=== PATIENT | female | born 1980 | race Caucasian/White ===

== ENCOUNTER 2019-07-07 16:16 | Inpatient (IN) | payer OTHER ==
[2019-07-20 11:55] VITALS: BMI 38.1
[2019-07-21] MEDS ORDERED: Heparin 5,000 UNITS/ML VIAL ONE (06:18)
[2019-07-21] MEDS ORDERED: Bupivacaine/Epinephrine 0.25% 30 ML VIAL ONE (07:02)
[2019-07-21] MEDS ORDERED: HYDROmorphone 0.5 MG/0.5 ML SYRINGE ONE (07:06)
[2019-07-21] MEDS ORDERED: Promethazine HCl 25 MG/ML VIAL ONE (07:06)
[2019-07-21] MEDS ORDERED: Fentanyl 100 MCG/2 ML VIAL ONE (07:06)
[2019-07-21] MEDS ORDERED: Midazolam HCl 2 mg/2 ml Vial ONE ×2 (07:06→07:13)
--- NOTE | 2019-07-21 07:37 | HP ---
CHIEF COMPLAINT: Morbid obesity. HISTORY OF PRESENT ILLNESS: The patient is a 38-year-old female who has been overweight for many years. She has attempted multiple weight loss programs without success. She has severe gastroesophageal reflux and she is here for laparoscopic Ann-en-Y gastric bypass. PAST MEDICAL HISTORY: Bipolar, depression, hypothyroidism, anxiety, depression, diabetes. PAST SURGICAL HISTORY: She has had finger surgery and a tonsillectomy. MEDICATIONS: 1. Levemir. 2. Metformin. 3. Wellbutrin. 4. Celexa. 5. Chantix. 6. Zolpidem. 7. Citalopram. 8. Divalproex ER. 9. ProAir. 10. Bupropion. 11. Diflucan. ALLERGIES: SHE HAS NO KNOWN DRUG ALLERGIES. FAMILY HISTORY: Father is from diabetes, hypertension, heart disease. Mother from diabetes, hypertension, heart disease. SOCIAL HISTORY: . She does smoke or she just quit smoking with Chantix. She drinks alcohol occasionally. PHYSICAL EXAMINATION: VITAL SIGNS: Height , weight 255, body mass index 42.43. GENERAL: Well-developed, well-nourished female, in no apparent distress. HEENT: Good hair growth. No alopecia. Pupils equal round reactive. Extraocular motor intact. Pharynx clear. Good dentition. LUNGS: Clear. NECK: Supple no thyroid masses. No carotid bruits. LUNG: Clear. HEART: Regular rate and rhythm. BREAST: There are no palpable breast masses. No lymphadenopathy. ABDOMEN: Soft, nondistended, nontender. No hernias. BACK: Nontender. EXTREMITIES: Good pulses. No pedal edema. ASSESSMENT: Morbid obesity with comorbidities. PLAN: Laparoscopic Ann-en-Y gastric bypass. CONSENT: I have discussed planned procedure as well as risk of bleeding, infection, injury to esophagus, spleen, loops of bowel, need to open, leakage from staple line. She understands and gives informed consent. Job ID: [id number]
[2019-07-21] MEDS ORDERED: Dextrose 5% in Water 1,000 ML IV PRN (09:43)
[2019-07-21] MEDS ORDERED: Promethazine HCl 25 MG/ML VIAL IM PRN ×3 (09:43→10:03)
[2019-07-21] MEDS ORDERED: Dextrose 50% Abboject 50 ML SYRINGE SLOW IVP PRN (09:43)
[2019-07-21] MEDS ORDERED: Hydrocodone-Acetamin 15 ML UDCUP PO PRN (09:43)
[2019-07-21] MEDS ORDERED: hydrALAZINE 20 MG/ML VIAL SLOW IVP PRN (09:43)
[2019-07-21] MEDS ORDERED: diphenhydrAMINE 50 MG/ML VIAL IVP PRN ×2 (09:43→10:03)
[2019-07-21] MEDS ORDERED: Insulin Regular 300 UNITS/3 ML VIAL SC PRN (09:43)
[2019-07-21] MEDS ORDERED: Ondansetron PF 4 MG/2 ML Vial IVP PRN ×2 (09:43→10:03)
[2019-07-21] MEDS ORDERED: PACU-Morphine 4MG/ML VIAL SLOW IVP PRN (09:59)
[2019-07-21] MEDS ORDERED: Ondansetron HCl/PF 4 MG/2 ML Vial IVP PRN (09:59)
[2019-07-21] MEDS ORDERED: Promethazine HCl 25 MG/ML VIAL SLOW IVP PRN (09:59)
[2019-07-21] MEDS ORDERED: HYDROmorphone 2 MG/ML VIAL SLOW IVP PRN (09:59)
[2019-07-21] MEDS ORDERED: Naloxone HCl 0.4 mg/ml Vial IV PRN (10:03)
[2019-07-21] MEDS ORDERED: Zolpidem Tartrate 5 MG TAB PO PRN (10:03)
[2019-07-21] MEDS ORDERED: diphenhydrAMINE 50 MG/ML VIAL IM PRN (10:03)
[2019-07-21] MEDS ORDERED: fentaNYL Citrate/PF 2,000 MCG in Sodium Chloride 0.9% 60 ML IV PRN (10:03)
[2019-07-21] MEDS ORDERED: diphenhydrAMINE 25 MG CAP PO PRN (10:03)
[2019-07-21] MEDS ORDERED: Communication Order-Pharmacy FS SCH (10:15)
--- NOTE | 2019-07-21 11:35 | OP ---
DATE OF PROCEDURE: 07/21/2019 PREOPERATIVE DIAGNOSIS: Morbid obesity with gastroesophageal reflux. PROCEDURE PERFORMED: Laparoscopic Ann-en-Y gastric bypass with esophagogastroscopy. INDICATIONS: This is 38-year-old female, morbidly obese, also has severe reflux esophagitis. FINDINGS: 100 cm Ann limb, 50 cm biliopancreatic limb. DESCRIPTION OF PROCEDURE: After informed consent was obtained, the patient was taken to the operating room and given general endotracheal anesthesia. She was placed in the supine position. Abdomen was prepped and draped in the usual fashion. Local anesthesia infiltrated subcutaneously and deep and a 12-mm incision was performed approximately 8 inches above the xiphoid slightly to the left. Veress needle inserted. Drop test performed. Pneumoperitoneum was created to a volume of 2 L of carbon dioxide. Utilizing a bladeless 12-mm trocar and 0-degree laparoscope, direct visual entry in the abdominal cavity was performed. Pneumoperitoneum was then created to a pressure of 15 mmHg. Under direct vision, two 12-mm ports were placed on the right lateral abdomen and one on the left. The omentum was grasped and advanced superiorly. The ligament of Treitz was found, 50 cm measured off, and the jejunum was divided utilizing the linear 60-mm white-load stapler. Then, distally, it was measured off another 100 cm and a [id number]-mo-dhbv functional end-to-end anastomosis was performed. The bowel was approximated and enterotomies were performed antimesenteric. The linear 60-mm white-load stapler was inserted, one limb in each limb of bowel closed and fired. The common enterotomy was closed with a running 2-0 V-Loc PDS. Then, the potential hernia space of Rahman was closed with a 2-0 silk suture, pursestring. The patient was then placed in steep reverse Trendelenburg position. Kip liver retractor inserted. Left lobe of liver retracted superiorly. The lesser curve was opened using blunt and sharp dissection to enter the lesser sac. A linear 60-mm blue-load stapler was inserted to make a transverse cut across the stomach trans. Then, using a series of 60-mm blue loads, the pouch was created by then going superiorly to the angle of His. Hemostasis was assured. Then, the omentum was split utilizing the LigaSure. The Ann limb was found. A gastrotomy was created with electrocautery and further dilated with a [place] dissector. This was also performed approximately 10 cm from the staple line on the Ann limb. The linear 60-mm blue load stapler was inserted, one limb in the jejunum, which was then advanced to the stomach, which was then inserted in the stomach. A perforation occurred on the jejunal area with the end of the stapler. The stapler was fired and this perforation on the left side was closed with interrupted [id number]-etirsv of 2-0 silk suture, tied intracorporeally. The gastrojejunostomy and common enterotomy were closed with a running transversely with a running 2-0 V-Loc PDS. Intraoperative endoscopy was then performed utilizing the video endoscope. This was inserted under direct vision and advanced into the gastric pouch. This was insufflated with air. The Ann limb was occluded with a laparoscopic Dequan to allow pressurized air to be delivered to the anastomosis. The scope advanced easily into the Ann limb. There was no evidence of air leak or bleeding. The stomach and small bowel decompressed. The scope removed. The ports were serially removed. Hemostasis assured. The skin closed with interrupted 4-0 Rapide. Dermabond applied. The patient tolerated the procedure well and transferred to Recovery in good condition. Job ID: [id number]
[2019-07-21] MEDS: Ketorolac Tromethamine 30 MG/ML VIAL IVP SCH ×3 (12:51→22:56)
[2019-07-21] MEDS: CEFAZOLIN 2 GM in Premix Bag 1 BAG IVPB SCH ×2 (13:59→22:54)
[2019-07-21] MEDS: 1/2 NS w/KCL 20 mEq 1,000 ML IV SCH ×3 (14:03→22:52)
[2019-07-22 05:10] LABS: #Basophils 0.1 thou/uL (0.0-0.2); #Lymphocytes 3.7 thou/uL (1.20-3.40); #Monocytes 1.7 thou/uL (0.11-0.59); #Neutrophils 9.6 thou/uL (1.40-6.50); %Basophils 0.5 % (0.0-1.0); %Eosinophils 0.2 % (0.0-10.0); %Lymphocytes 24.4 % (21.0-51.0); %Monocytes 11.3 % (0.0-10.0); %Neutrophils 63.7 % (42.0-75.0); Hemoglobin 12.3 g/dL (12.0-16.0); Mean Corpuscular Hemoglobin 34.5 pg (27.0-31.0); Mean Platelet Volume 8.5 fL (7.4-10.4); Platelet Count 174 thou/uL (130-400); RBC Distribution Width 12.5 % (11.5-14.5); Red Blood Cell (RBC) Count 3.57 mill/uL (4.20-5.40); White Blood Cell (WBC) Count 15.1 thou/uL (4.8-10.8)
[2019-07-22] MEDS: Ketorolac Tromethamine 30 MG/ML VIAL IVP SCH ×2 (05:23→11:09)
[2019-07-22 05:27] LABS: Anion Gap 13 mmol/L (10-20); BUN (Urea Nitrogen) 9 mg/dL (7.0-18.7); Calc. Creatinine Clearance 166 mL/min (70-130); Calcium 7.8 mg/dL (7.8-10.44); Carbon Dioxide 22 mmol/L (22-29); Chloride 104 mmol/L (98-107); Estimated GFR-MDRD 85; Glucose 97 mg/dL (70-105); Potassium 4.4 mmol/L (3.5-5.1); Sodium 135 mmol/L (136-145)
[2019-07-22] MEDS: 1/2 NS w/KCL 20 mEq 1,000 ML IV SCH (06:38)
[2019-07-22 07:58] VITALS: BP 120/74; TEMP 97.7
[2019-07-22] MEDS ORDERED: Enoxaparin Sodium 40 MG/0.4 ML SYRINGE SC SCH (09:00)
[2019-07-22] MEDS ORDERED: Pantoprazole 40 MG VIAL IVP SCH (09:00)
--- NOTE | 2019-07-22 11:03 | RAD ---
LIMITED UPPER GI: Date: 07/22/19 INDICATIN: Postop gastric bypass evaluation. FINDINGS: The patient was given Gastrografin orally under fluoroscopy. Contrast flowed through the EG junction without difficulty. Small gastric pouch opacified. Contrast flowed into the jejunum through the gastr ic jejunostomy without difficulty. No extravasation. IMPRESSION: Unremarkable post gastric bypass exam. POS: IZABELLA
[2019-07-22] MEDS ORDERED: GASTROGRAFIN 30 ML BOT ONE (12:06)
--- NOTE | 2019-07-23 03:55 | DIS ---
DATE OF ADMISSION: 07/21/2019 DATE OF DISCHARGE: 07/22/2019 DISCHARGE DIAGNOSES: Morbid obesity, gastroesophageal reflux. PROCEDURES DURING ADMISSION: Laparoscopic Ann-en-Y gastric bypass, intraoperative esophagogastroscopy, and postoperative Gastrografin swallow. HOSPITAL COURSE: The patient was admitted and taken to the operating room, where she underwent Ann-en-Y gastric bypass and intraoperative esophagogastroscopy. Postoperatively, she has done well. Minimal pain. Her swallow study was fine. She was started on liquids. She is tolerating them well. She is discharged home on hydrocodone and Zofran. She will follow up with me in 2 weeks. Job ID: [id number]
== END 2019-07-22 11:57 | disposition home or self-care (01) | DRG 621 ==
LOC: SURG A 07-21 05:49
PROVIDERS: ADMIT Surgery; ATTEND Surgery
PROC: 0D164ZA Bypass Stomach to Jejunum, Percutaneous Endoscopic Approach (ICD-10-PCS; principal; 2019-07-21)
PROC: 0DJ08ZZ Inspection of Upper Intestinal Tract, Via Natural or Artificial Opening Endoscopic (ICD-10-PCS; 2019-07-21)
DX: E66.01 Morbid (severe) obesity due to excess calories (principal); K21.9 Gastro-esophageal reflux disease without esophagitis; Z79.84 Long term (current) use of oral hypoglycemic drugs; Z79.899 Other long term (current) drug therapy; Z68.41 Body mass index [BMI] 40.0-44.9, adult
CPT/HCPCS: 36415; 36416; 74241; 80048; 85025; 94760; C9113; J0690; J1170; J1644; J1650; J1885; J2250; J2550; J3010; J3480; J3490

== ENCOUNTER 2020-02-14 15:32 | Inpatient (IN) | payer OTHER ==
[~2020-02-14 15:32] MED LIST: Dexamethasone 20 MG/5 ML VIAL ONE; Glycopyrrolate 0.2 MG/ML 5 ML SYRINGE ONE; Ketorolac Tromethamine 30 MG/ML VIAL ONE; Lidocaine 1% PF 5 ML VIAL ONE; Metoclopramide HCl 10 MG/2 ML VIAL ONE; Ondansetron PF 4 MG/2 ML Vial ONE; PROPOFOL 200 MG/20 ML VIAL ONE; Rocuronium Bromide 10 MG/ML (10ML VIAL) ONE; Succinylcholine Chloride 20 MG/ML 10 ml SYRINGE FS ONE
[2020-02-14] MEDS ORDERED: Betamet Acet/Betamet Na Ph 30 MG/5 ML VIAL ONE (16:08)
[2020-02-14] MEDS ORDERED: Heparin 10,000 UNITS/1 ML VIAL ONE (16:08)
[2020-02-14] MEDS ORDERED: Bupivacaine PF 0.5% 30 ML VIAL ONE (16:08)
[2020-02-14] MEDS ORDERED: Hetastarch 6% 500 ML 0 ML ONE (16:09)
[2020-02-14] MEDS ORDERED: Bacitracin Zinc Ointment 30 gm TUBE ONE ×2 (16:09→16:35)
[2020-02-14] MEDS ORDERED: Lidocaine 2% PF 5 ML VIAL ONE (16:09)
[2020-02-14] MEDS ORDERED: Vancomycin 1 GM/200 ML BAG ONE (16:21)
--- NOTE | 2020-02-14 16:27 | RAD ---
LEFT THUMB RADIOGRAPHS THREE VIEWS: 02/14/20 PROVIDED CLINICAL HISTORY: Fracture follow-up. FINDINGS: Comparison is made with the examination dated 02/13/20. Obliquely oriented, displaced fracture of the thumb distal phalanx is redemonstrated. Overlying bandaging material is noted. Communication with the skin surface in the region of the nailbed is suspected. Joint spaces appear preserved. Alignment mahsa ears otherwise anatomic. IMPRESSION: Displaced, likely open fracture of the thumb distal phalanx. POS: THOM
[2020-02-14] MEDS ORDERED: Ondansetron PF 4 MG/2 ML Vial IV PRN (16:41)
[2020-02-14] MEDS ORDERED: Bisacodyl 10 MG SUPP PR PRN (16:41)
[2020-02-14] MEDS ORDERED: Acetaminophen 325 MG TAB PO PRN (16:41)
[2020-02-14] MEDS ORDERED: traMADol HCl 50 MG TAB PO PRN (16:41)
[2020-02-14] MEDS ORDERED: Fentanyl 100 MCG/2 ML VIAL SLOW IVP PRN (16:41)
[2020-02-14] MEDS ORDERED: Morphine 2 MG/ML SYRINGE SLOW IVP PRN (16:41)
[2020-02-14] MEDS ORDERED: HYDROcodone/Acetaminophen 5/325 mg Tablet PO PRN (16:41)
[2020-02-14] MEDS ORDERED: Communication Order-Pharmacy FS SCH (16:45)
[2020-02-14] MEDS ORDERED: Meperidine HCl/PF 25 MG/ML VIAL IM PRN (16:47)
[2020-02-14] MEDS ORDERED: Sodium Chloride 0.9% 30 ML ONE (16:47)
[2020-02-14] MEDS ORDERED: TETANUS AND DIPHTHERIA TOX/PF 0.5 ML DISP.SYRIN IM SCH (17:00)
[2020-02-14] MEDS ORDERED: Fentanyl 100 MCG/2 ML VIAL ONE (17:02)
[2020-02-14] MEDS ORDERED: Midazolam HCl 2 mg/2 ml Vial ONE (17:22)
[2020-02-14] MEDS ORDERED: HYDROmorphone 2 MG/ML VIAL SLOW IVP PRN (18:43)
[2020-02-14] MEDS ORDERED: Promethazine HCl 25 MG/ML VIAL IM PRN (18:43)
[2020-02-14] MEDS ORDERED: Meperidine HCl/PF 25 MG/ML VIAL SLOW IVP PRN (18:43)
[2020-02-14] MEDS ORDERED: Promethazine HCl 25 MG/ML VIAL SLOW IVP PRN (18:43)
--- NOTE | 2020-02-14 18:57 | RAD ---
Left thumb 2 views intraoperative fluoroscopy HISTORY: Fracture. Internal fixation. FINDINGS: Intraoperative fluoroscopy was provided for internal fixation as performed by Dr. Virgen. Spot fluoroscopic images show 2 thin wires to transfix the fracture of the distal phalanx left thumb. Alignment is anatomic. Fluoroscopy time 35 seconds.
[2020-02-14] MEDS ORDERED: Heparin 5,000 UNITS/ML VIAL ONE (19:28)
[2020-02-14] MEDS ORDERED: Aspirin 325 mg Enteric Coated Tablet ONE (19:32)
[2020-02-14] MEDS ORDERED: Ondansetron PF 4 MG/2 ML Vial ONE (19:37)
[2020-02-14] MEDS ORDERED: Heparin 5,000 UNITS/ML VIAL SC SCH (19:45)
[2020-02-14] MEDS ORDERED: Hetastarch 6% 500 ML 500 ML IVPB SCH (19:45)
[2020-02-14] MEDS ORDERED: Aspirin 325 mg Enteric Coated Tablet PO SCH (19:45)
[2020-02-14] MEDS ORDERED: HETASTARCH 6% IVPB SCH (19:45)
[2020-02-14] MEDS ORDERED: Aspirin 81 mg Enteric Coated Tablet PO SCH (21:00)
[2020-02-15] VITALS: BMI 30.5
--- NOTE | 2020-02-15 02:47 | OP ---
DATE OF PROCEDURE: 02/14/2020 PREOPERATIVE DIAGNOSIS: Dog bite, crush injury greater than 24 hours at the time presentation with possible neurovascular compromise. FINDINGS: 1. Grade 2 open fracture, nail bed with some dog hair, one small piece of grass found. The fracture site was subcutaneous, not deep in the wound. 2. Nail bed injury obliquely going from radial to central. 3. Skin bridge, 3 mm periungual with central arterial intact and the ulnar digital nerve intact and the central artery intact upon neuroplasty visualization. PROCEDURES PERFORMED: 1. Debridement of wound. 2. Debridement of material associated with open fracture, distal phalanx. 3. Open reduction internal fixation of distal phalanx fracture. 4. C-arm supervision. 5. Closure of wound, 3 cm. 6. Nailbed repair. 7. Neuroplasty, digital nerve. COMPLICATIONS: None. SPECIMENS REMOVED: Small debridement, not sent to the lab. TOURNIQUET TIME: Zero. ESTIMATED BLOOD LOSS: 10 mL. INDICATION: Patient with dog bite wound 26 hours prior to beginning of the procedure. DESCRIPTION OF PROCEDURE: After successful general endotracheal anesthesia, the limb was prepped and draped. We visualized as we did in the preoperative area exam that the whole central pulp distal to a laceration was pink with a 1.5 second refill and upon inspection, they remained so. There was a 3 mm skin bridge seen periungual on the radial side and the laceration then went from there nearly circumferentially, but was more superficial periungually. Once we did our wound exploration, to include small proximal extension of the incision, we were able to see that the central arterial was intact even with the wound gap by 1 cm and the ulnar neurovascular bundle did not appear to be lacerated, but the radial neurovascular bundle was lacerated distal to the midportion of the nail. We then removed the nail. We then began debridement using a curette, tenotomy scissors, Adson, and 4 L Pulsavac with antibiotics inside with normal saline. The depth was all the way completely through the fracture into the pulp space from dorsal to palmar elevated the nail bed laceration. Even at the end of the Pulsavac irrigation, the central tuft skin distal to the laceration remained pink with the same refill. We then finished curetting the fracture and excisional technique was used for the debridement. At this point, we then placed 2 sutures on the laceration to help realign the skin with 5-0 nylon. We then reduced the fracture, which was approximately 30 degrees apex dorsal angulated and approximately 50% displaced in frontal plane to nearly anatomic position, except for where there was some bone loss. All dog debris had been removed. This included a hemolyzed blood and dog hair. We then were able to pass two 0.035 K-wires centrally across the fracture site. The nail bed distal to the fracture as well as the pulp space distal fracture both bled as we repaired the laceration in the next step after the K-wires were in excellent position and the fracture was well reduced. A 5-0 nylon was used the skin leaving no suture in the 5-6 mm area where the central arterial was located. We also then repaired the nailbed with an interrupted 6-0 chromic under loupe magnification. The neuroplasty had been done under the loupe magnification as well. We brought the C-arm to the field, showed that the reduction to be excellent without angulation in frontal sagittal plane, only gap seen was with bone was missing. We had repaired the nailbed, the nailbed was pink distal to this area. Capillary refill involved 1.5 seconds and extended through the central 2/3 of the pulp space including the areas in the central 2/3 where we had placed a needle for suturing. We obtained hemostasis. We then dressed the wound with bacitracin, Adaptic, 4x4s, Kerlix in a loose configuration, and then a dorsal splint over the thumb itself without pressure. A lightly applied Kong wrap was done and the patient left the operating room without evidence of anesthetic or operative complication. Job ID: [id number]
[2020-02-15] MEDS ORDERED: Vancomycin 1 GM in Premix Bag 1 BAG IVPB SCH (05:00)
[2020-02-15] MEDS ORDERED: Heparin 5,000 UNITS/ML VIAL SC SCH (06:00)
[2020-02-15] MEDS ORDERED: Aspirin 325 mg Enteric Coated Tablet PO SCH (09:00)
[2020-02-15 11:04] VITALS: BP 123/85; TEMP 98.8
[2020-02-16] MEDS ORDERED: Aspirin 81 mg Enteric Coated Tablet PO SCH (09:00)
== END 2020-02-15 11:15 | disposition home or self-care (01) | DRG 514 ==
LOC: ERS 15:32 → SDC 16:07 → SURG A 16:47
PROVIDERS: ADMIT Orthopaedic Surgery Hand Surgery; ATTEND Orthopaedic Surgery Hand Surgery
PROC: 0PSV04Z Reposition Left Finger Phalanx with Internal Fixation Device, Open Approach (ICD-10-PCS; principal; 2020-02-14)
PROC: 01Q40ZZ Repair Ulnar Nerve, Open Approach (ICD-10-PCS; 2020-02-14)
PROC: 0HQQXZZ Repair Finger Nail, External Approach (ICD-10-PCS; 2020-02-14)
DX: S62.522B Displaced fracture of distal phalanx of left thumb, initial encounter for open fracture (principal); S64.32XA Injury of digital nerve of left thumb, initial encounter; F32.9 Major depressive disorder, single episode, unspecified; F41.9 Anxiety disorder, unspecified; F17.200 Nicotine dependence, unspecified, uncomplicated; W54.0XXA Bitten by dog, initial encounter
CPT/HCPCS: 76000; 90471; 90732; G0009; J0702; J1100; J1644; J1885; J2001; J2250; J2405; J2704; J2765; J3010; J3370; S0020

== ENCOUNTER 2020-03-09 17:15 | Inpatient (IN) | payer OTHER ==
[~2020-03-09 17:15] MED LIST changes: -Glycopyrrolate 0.2 MG/ML 5 ML SYRINGE ONE; -Metoclopramide HCl 10 MG/2 ML VIAL ONE
[2020-03-09] MEDS ORDERED: Sodium Chloride 0.9% 20 ML ONE (18:09)
[2020-03-09] MEDS ORDERED: Fentanyl 100 MCG/2 ML VIAL ONE (19:08)
[2020-03-09] MEDS ORDERED: Communication Order-Pharmacy FS SCH (19:30)
[2020-03-09] MEDS ORDERED: diphenhydrAMINE 50 MG/ML VIAL IVP PRN (19:30)
[2020-03-09] MEDS ORDERED: Zolpidem Tartrate 5 MG TAB PO PRN (19:30)
[2020-03-09] MEDS ORDERED: Naloxone HCl 0.4 mg/ml Vial IV PRN (19:30)
[2020-03-09] MEDS ORDERED: Ondansetron PF 4 MG/2 ML Vial IVP PRN ×2 (19:30→21:30)
[2020-03-09] MEDS ORDERED: Ondansetron HCl/PF 4 MG/2 ML Vial IVP PRN (19:30)
[2020-03-09] MEDS ORDERED: Promethazine HCl 25 MG/ML VIAL SLOW IVP PRN (19:30)
[2020-03-09] MEDS ORDERED: diphenhydrAMINE 50 MG/ML VIAL IM PRN (19:30)
[2020-03-09] MEDS ORDERED: Promethazine HCl 25 MG/ML VIAL IM PRN ×3 (19:30→21:30)
[2020-03-09] MEDS ORDERED: fentaNYL Citrate/PF 2,000 MCG in Sodium Chloride 0.9% 60 ML IV PRN (19:30)
[2020-03-09] MEDS ORDERED: diphenhydrAMINE 25 MG CAP PO PRN (19:30)
--- NOTE | 2020-03-09 19:41 | HP ---
CHIEF COMPLAINT: Abdominal pain. HISTORY OF PRESENT ILLNESS: This is a 39-year-old female, who is 8 months status post laparoscopic gastric bypass by Dr. Moralez, whose postop course has been uneventful. She presents with acute onset of severe epigastric pain, that is described as sharp, became more diffuse pain, hard to breathe, associated with nausea, seen in the emergency department in [place] where CT scan shows free air. The patient is a smoker, states she is trying to quit. No significant alcohol. No other drugs. Does not take any anti-inflammatories daily. She is not currently on an antacid. PAST MEDICAL HISTORY: Depression and anxiety. PAST SURGICAL HISTORY: As above. MEDICATIONS: Taken daily: 1. Hydroxyzine. 2. Celexa. 3. . 4. Buspirone. 5. Quetiapine. 6. Mobic. ALLERGIES: NO KNOWN DRUG ALLERGIES. SOCIAL HISTORY: As above. REVIEW OF SYSTEMS: Ten-system review of systems is otherwise negative unless described above. PHYSICAL EXAMINATION: VITAL SIGNS: Her pulse is 120. Blood pressure is stable. She is afebrile. HEENT: Sclerae anicteric. Oropharynx clear. NECK: No lymphadenopathy. CHEST: Clear. HEART: Increased rate, regular rhythm. CHEST: Clear. ABDOMEN: Soft, but diffuse guarding and rebound tenderness. Well-healed laparoscopic incisions. DIAGNOSTIC DATA: CT scan shows free air. ASSESSMENT: Perforated viscus, likely related to marginal ulcer with risk factors being Mobic and smoking. PLAN: Exploratory laparotomy, abdominal washout, patch repair versus revision. Risks, benefits, and alternatives discussed. She gives consent. We will do this today. Job ID: [id number]
[2020-03-09] MEDS ORDERED: Dextrose 50% Abboject 50 ML SYRINGE SLOW IVP PRN (21:30)
[2020-03-09] MEDS ORDERED: hydrALAZINE 20 MG/ML VIAL SLOW IVP PRN (21:30)
[2020-03-09] MEDS ORDERED: Dextrose 5% in Water 1,000 ML IV PRN (21:30)
[2020-03-09] MEDS: D5 1/2 NS w/20 mEq KCL 1,000 ML IV SCH (23:40)
[2020-03-09] MEDS: Pantoprazole 40 MG VIAL IVP SCH (23:41)
[2020-03-09] MEDS: Fluconazole In NaCl,Iso-Osm 200 MG in Premix Bag 1 BAG IVPB SCH (23:42)
[2020-03-09] MEDS: Piperacillin/Tazobactam 3.375 GM in Sodium Chloride 0.9% 100 ML IVPB SCH (23:44)
[2020-03-09 23:47] VITALS: BMI 29.8
[2020-03-09] MEDS ORDERED: Ketorolac Tromethamine 30 MG/ML VIAL IVP SCH (23:59)
--- NOTE | 2020-03-10 00:06 | OP ---
DATE OF PROCEDURE: 03/09/2020 PREOPERATIVE DIAGNOSIS: Perforated viscus. POSTOPERATIVE DIAGNOSIS: Perforated marginal ulcer after gastric bypass. PROCEDURES PERFORMED: Exploratory laparotomy, abdominal washout, closure and omental patch repair of perforated marginal ulcer. ANESTHESIA: General. ESTIMATED BLOOD LOSS: 50 mL. COMPLICATIONS: None. FINDINGS: Perforated marginal ulcer. TECHNIQUE: The patient was taken to the operating room and laid supine on the operating room table after general anesthetic was obtained. Alaniz was placed. The abdomen was prepped and draped in a sterile fashion. A midline incision was made and the abdomen was entered without injury. Bookwalter retractor was placed. There was significant intraabdominal contamination. The abdomen was irrigated with multiple liters of warm sterile solution until all returns were clear. There was a perforation of the anterior aspect of the jejunum just beyond the previous gastrojejunal anastomosis. There was no obvious mass in the area. This was closed using a combination of PDS and Vicryl sutures. The tissues around it were fairly friable and so the closure was tenuous. Tongue of omentum was easily able to be brought up over the top of this and sewn to the surface of the perforation using a Vicryl suture. This omental patch was a localized flap with a good seal anteriorly. All returns were clear. All instrument counts, needle counts, and lap counts were correct. There was no bleeding in the abdomen. PDS was used to close the fascia from top and bottom and tied in the middle. Subcutaneous tissues were irrigated. The skin was closed using skin melvina and Telfa km were placed in between the melvina. The patient is en route to recovery in stable condition. All instrument counts, needle counts, and lap counts were correct. Job ID: [id number]
[2020-03-10 04:57] LABS: #Basophils 0.1 thou/uL (0.0-0.2); #Lymphocytes 1.3 thou/uL (1.20-3.40); #Monocytes 0.6 thou/uL (0.11-0.59); #Neutrophils 14.1 thou/uL (1.40-6.50); %Basophils 0.3 % (0.0-1.0); %Eosinophils 0.2 % (0.0-10.0); %Lymphocytes 8.1 % (21.0-51.0); %Monocytes 3.7 % (0.0-10.0); %Neutrophils 87.7 % (42.0-75.0); Hemoglobin 13.1 g/dL (12.0-16.0); Mean Corpuscular HGB CONC 31.1 g/dL (32.0-36.0); Mean Corpuscular Hemoglobin 31.2 pg (27.0-31.0); Mean Platelet Volume 9.7 fL (7.4-10.4); Platelet Count 282 thou/uL (130-400); White Blood Cell (WBC) Count 16.1 thou/uL (4.8-10.8)
[2020-03-10 05:20] LABS: Anion Gap 13 mmol/L (10-20); BUN (Urea Nitrogen) 11 mg/dL (7.0-18.7); Calc. Creatinine Clearance 111 mL/min (70-130); Calcium 7.9 mg/dL (7.8-10.44); Carbon Dioxide 17 mmol/L (22-29); Chloride 110 mmol/L (98-107); Estimated GFR-MDRD 69; Glucose 219 mg/dL (70-105); Potassium 3.9 mmol/L (3.5-5.1); Sodium 136 mmol/L (136-145)
[2020-03-10] MEDS: Piperacillin/Tazobactam 3.375 GM in Sodium Chloride 0.9% 100 ML IVPB SCH ×4 (06:43→23:53)
[2020-03-10] MEDS: D5 1/2 NS w/20 mEq KCL 1,000 ML IV SCH ×3 (06:47→20:24)
[2020-03-10] MEDS: Pantoprazole 40 MG VIAL IVP SCH ×2 (08:21→20:21)
--- NOTE | 2020-03-10 09:24 | PRG ---
DATE OF SERVICE: 03/10/2020 SUBJECTIVE: Ms. Naranjo' pain is controlled. She has no complaints this morning. No significant nausea. She is not out of bed yet. She is afebrile and her vital signs are stable. Her abdomen is soft. Her midline dressings have some serosanguineous drainage on them secondary to the underlying km. White blood cell count is 16, hemoglobin is 13, creatinine 0.92, potassium 3.9. ASSESSMENT: Postop day #1, perforated marginal ulcer repair and omental patch. PLAN: Continue NG tube today. Discontinue Alaniz. Ambulate. Gastrografin through NG tube tomorrow to check for leak. Job ID: [id number]
[2020-03-10] MEDS ORDERED: Sodium Chloride 0.9% 1,000 ML IV SCH (17:45)
[2020-03-10] MEDS: Fluconazole In NaCl,Iso-Osm 200 MG in Premix Bag 1 BAG IVPB SCH (21:44)
[2020-03-11] MEDS: Piperacillin/Tazobactam 3.375 GM in Sodium Chloride 0.9% 100 ML IVPB SCH ×4 (05:06→23:05)
[2020-03-11] MEDS: D5 1/2 NS w/20 mEq KCL 1,000 ML IV SCH ×4 (05:07→19:49)
[2020-03-11 05:13] LABS: #Eosinphils 0.1 thou/uL (0.0-0.7); #Lymphocytes 2.2 thou/uL (1.20-3.40); #Monocytes 1.1 thou/uL (0.11-0.59); #Neutrophils 12.6 thou/uL (1.40-6.50); %Eosinophils 0.7 % (0.0-10.0); %Lymphocytes 13.7 % (21.0-51.0); %Monocytes 6.7 % (0.0-10.0); %Neutrophils 78.9 % (42.0-75.0); Hemoglobin 10.9 g/dL (12.0-16.0); Mean Corpuscular HGB CONC 32.4 g/dL (32.0-36.0); Mean Corpuscular Hemoglobin 31.8 pg (27.0-31.0); Mean Corpuscular Volume 98.2 fL (78.0-98.0); Mean Platelet Volume 8.6 fL (7.4-10.4); Platelet Count 257 thou/uL (130-400); RBC Distribution Width 12.6 % (11.5-14.5); Red Blood Cell (RBC) Count 3.42 mill/uL (4.20-5.40); White Blood Cell (WBC) Count 15.9 thou/uL (4.8-10.8)
[2020-03-11 05:31] LABS: Anion Gap 10 mmol/L (10-20); BUN (Urea Nitrogen) 10 mg/dL (7.0-18.7); Calc. Creatinine Clearance 138 mL/min (70-130); Calcium 8.2 mg/dL (7.8-10.44); Carbon Dioxide 20 mmol/L (22-29); Chloride 113 mmol/L (98-107); Estimated GFR-MDRD 88; Glucose 136 mg/dL (70-105); Potassium 4.2 mmol/L (3.5-5.1); Sodium 139 mmol/L (136-145)
[2020-03-11 05:53] LABS: Vitamin D, 25 Hydroxy 18.8 ng/ml (> 30.0)
[2020-03-11 05:58] LABS: Ferritin 236.67 ng/mL (10-291)
[2020-03-11] MEDS ORDERED: MD-Gastroview 120 ML BOT ONE (09:20)
--- NOTE | 2020-03-11 09:26 | PRG ---
DATE OF SERVICE: 03/11/2020 SUBJECTIVE: Ms. Naranjo says she has no real complaints. 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 She does not have significant nausea. She is ambulating without difficulty now. She is afebrile. OBJECTIVE: VITAL SIGNS: Her vital signs are stable. NG outputs 50 mL for the last 24 hours. ABDOMEN: Soft. Her midline wound is dressed. She is appropriately tender. LABORATORY DATA: White cell count is 15, hemoglobin 10, platelet count is 257. Sodium 139, creatinine 0.74. Potassium is 4.2. ASSESSMENT: Postop day 2, omental patch and closure of marginal ulcer. PLAN: Plan is to use the NG tube today to do swallow test and using NG for contrast study to be sure that her marginal ulcer has omental patch sealed, if so discontinue NG and try clear liquids. Job ID: [id number]
[2020-03-11] MEDS: Pantoprazole 40 MG VIAL IVP SCH ×2 (09:34→19:51)
--- NOTE | 2020-03-11 10:37 | RAD ---
CHEST PA AND LATERAL:: HISTORY: Repair of previous ulceration. Status post Limited upper GI. FINDINGS: Lines and tubes: Residual contrast is noted in the nasogastric tube. Heart: Normal cardiac silhouette. Aorta: Unremarkable. Pulmonary vessels: Normal. Costophrenic angles: Costophrenic angles are clear. Lungs: Bibasilar atelectasis. Pneumothorax: No pneumothorax. Osseous structures: No acute osseous abnormalities. Additional findings: Contrast opacifies the gastric pouch. No evidence of leak or extravasation. IMPRESSION: 1. Bibasilar atelectasis is suspected. 2. Contrast noted in the gastric pouch. No obvious leak or extravasation. Transcribed Date/Time: 03/11/2020 11:12 AM
--- NOTE | 2020-03-11 10:39 | RAD ---
GASTROGRAFIN UPPER GI: HISTORY: Evaluate for leak at ulcer patch. COMPARISON: 07/22/2019. FINDINGS: Initial supine and upright Swatcher radiographs demonstrate postsurgical changes. Suture chain, surgical clips and midline skin melvina are noted. Nasogastric tube is identified. Patient was administered a total of 50 cc of Gastrografin. There is a focal outpouching along the jennifer stomosis of the gastric pouch and jejunum. This outpouching is similar to the previous examination. There does not appear to be a leak or extravasation. IMPRESSION: No leak or extravasation. Transcribed Date/Time: 03/11/2020 11:14 AM
--- NOTE | 2020-03-11 10:50 | RAD ---
Exam: 2 views abdomen HISTORY: Gastrografin upper GI to assess for leak at ulcer patch FINDINGS: Post procedure supine and upright abdomen radiograph demonstrate contrast opacifying the ga stric pouch and jejunal loops. There is no evidence of leak or extravasation. IMPRESSION: No evidence of leak or extravasation.
[2020-03-11] MEDS: Fluconazole In NaCl,Iso-Osm 200 MG in Premix Bag 1 BAG IVPB SCH (21:20)
[2020-03-12] MEDS: D5 1/2 NS w/20 mEq KCL 1,000 ML IV SCH (05:36)
[2020-03-12] MEDS: Piperacillin/Tazobactam 3.375 GM in Sodium Chloride 0.9% 100 ML IVPB SCH ×4 (05:36→23:57)
[2020-03-12 06:15] LABS: #Eosinphils 0.2 thou/uL (0.0-0.7); #Lymphocytes 2.1 thou/uL (1.20-3.40); #Monocytes 0.9 thou/uL (0.11-0.59); #Neutrophils 7.7 thou/uL (1.40-6.50); %Basophils 0.2 % (0.0-1.0); %Eosinophils 1.5 % (0.0-10.0); %Lymphocytes 19.2 % (21.0-51.0); %Monocytes 8.2 % (0.0-10.0); %Neutrophils 70.8 % (42.0-75.0); Hemoglobin 9.4 g/dL (12.0-16.0); Mean Corpuscular HGB CONC 32.7 g/dL (32.0-36.0); Mean Corpuscular Hemoglobin 31.9 pg (27.0-31.0); Mean Corpuscular Volume 97.5 fL (78.0-98.0); Mean Platelet Volume 8.8 fL (7.4-10.4); Platelet Count 233 thou/uL (130-400); RBC Distribution Width 12.7 % (11.5-14.5); Red Blood Cell (RBC) Count 2.96 mill/uL (4.20-5.40); White Blood Cell (WBC) Count 10.9 thou/uL (4.8-10.8)
[2020-03-12 06:30] LABS: Anion Gap 10 mmol/L (10-20); BUN (Urea Nitrogen) 7 mg/dL (7.0-18.7); Calc. Creatinine Clearance 142 mL/min (70-130); Calcium 7.8 mg/dL (7.8-10.44); Carbon Dioxide 20 mmol/L (22-29); Chloride 111 mmol/L (98-107); Estimated GFR-MDRD Greater than 90; Glucose 117 mg/dL (70-105); Potassium 3.1 mmol/L (3.5-5.1); Sodium 138 mmol/L (136-145)
[2020-03-12] MEDS ORDERED: Potassium Chloride 40 MEQ in Sodium Chloride 0.9% 250 ML 250 ML IVPB SCH (07:15)
[2020-03-12] MEDS: Pantoprazole 40 MG VIAL IVP SCH ×2 (09:08→20:57)
[2020-03-12] MEDS ORDERED: Fentanyl 100 MCG/2 ML VIAL SLOW IVP PRN ×2 (09:20)
[2020-03-12] MEDS ORDERED: D5 1/2 NS w/20 mEq KCL 1,000 ML IV SCH (09:21)
--- NOTE | 2020-03-12 09:30 | PRG ---
DATE OF SERVICE: 03/12/2020 SUBJECTIVE: Ms. Naranjo is doing well. She tolerated the clear liquid diet. Her pain is controlled. OBJECTIVE: VITAL SIGNS: She is afebrile. Vital signs are stable. ABDOMEN: Soft, appropriately tender. Marielos are removed from the wound. There is no purulence. ASSESSMENT: Postoperative day 3, patch repair of perforated marginal ulcer. PLAN: Discontinue patient-controlled analgesia. Advance to full liquids. Likely home tomorrow. Job ID: [id number]
[2020-03-12] MEDS: Hydrocodone-Acetamin 15 ML UDCUP PO PRN ×2 (11:27→18:22)
[2020-03-12] MEDS: Fluconazole In NaCl,Iso-Osm 200 MG in Premix Bag 1 BAG IVPB SCH (20:57)
[2020-03-13] MEDS: Hydrocodone-Acetamin 15 ML UDCUP PO PRN ×2 (01:14→09:11)
[2020-03-13] MEDS: Piperacillin/Tazobactam 3.375 GM in Sodium Chloride 0.9% 100 ML IVPB SCH ×2 (05:58→12:00)
[2020-03-13] MEDS: Pantoprazole 40 MG VIAL IVP SCH (09:06)
--- NOTE | 2020-03-13 10:44 | DIS ---
DATE OF ADMISSION: 03/09/2020 DATE OF DISCHARGE: 03/13/2020 ADMISSION DIAGNOSIS: Perforated marginal gastrojejunal ulcer. DISCHARGE DIAGNOSIS: Perforated marginal gastrojejunal ulcer. PROCEDURES PERFORMED: Omental patch repair and closure of ulcer by Franciscat without complication. HOSPITAL COURSE: The patient had swallow study through her NG on postop day #2, which is clear. She was started on liquid diet today, she has tolerated a full liquid diet without difficulty. She is being discharged home. She will follow up with me in 1 week for staple removal. Job ID: [id number]
[2020-03-13 12:11] VITALS: BP 139/84; TEMP 97.9
--- NOTE | 2020-03-14 07:01 | PQF ---
[employer] Therapist Crystal Reports Winform Viewer LORI TSANG BRYAN DAVID MD [id number] SURG A- [id number] CLINICAL DOCUMENTATION CLARIFICATION FORM: POST DISCHARGE Addendum to original discharge summary date: ____ Late entry note date: __ DATE: 03/14/20 ATTN:Selvin Chino Please exercise your independent, professional judgment in responding to the clarification form. Clinical indicators are provided on the bottom of this form for your review Can you please further clarify if perforated gastrojejunal ulcer is a complication of recent lap gastric bypass or not? Please check appropriate box(s): [ ] Perforated gastrojejunal ulcer is a complication of recent lap gastric bypass [x ] Perforated gastrojejunal ulcer is a not complication of recent lap gastric bypass [ ] Other diagnosis please specify [ ] Unable to determine In addition, please specify: Present on Admission (POA): [ x ] Yes [ ] No [ ] Unable to determine CLINICAL INDICATORS - SIGNS / SYMPTOMS / LABS H and P pg.1- presents with acute onset of severe epigastric pain that is described as sharp,became more diffuse pain, associated with nausea H and P pg.1- 39 years old female, who is 8 months status post laparoscopic gastric bypass H and P pg.2- perforated viscus, likely related to marginal ulcer OP report pg.1- Perforated marginal ulcer after gastric bypass Laboratory- WBC 16.1H, 15.9H ,10.9H Abdominal imaging pg 1 03/11 focal outpouching along the anastomosis of gastric pouch and jejunum RISK FACTORS Smoker- H and P pg.1 s/p lap gastric bypass- H and P pg.1 TREATMENT: Explore laparotomy- OP report pg.1 Abdominal washout- OP report pg.1 Closure and omental patch repair- OP report pg.1 IV Fluids- MAR Abdominal X ray 03/11 (This form is maintained as a part of the permanent medical record) 2014 [employer] All Rights Reserved [email or web address]
== END 2020-03-13 13:00 | disposition home or self-care (01) | DRG 331 ==
LOC: SDC 17:15 → SURG A 18:45
PROVIDERS: ADMIT Surgery; ATTEND Surgery
PROC: 0DUA07Z Supplement Jejunum with Autologous Tissue Substitute, Open Approach (ICD-10-PCS; principal; 2020-03-09)
DX: K28.5 Chronic or unspecified gastrojejunal ulcer with perforation (principal); F17.210 Nicotine dependence, cigarettes, uncomplicated; F41.9 Anxiety disorder, unspecified; F32.9 Major depressive disorder, single episode, unspecified; Z88.8 Allergy status to other drugs, medicaments and biological substances
CPT/HCPCS: 36415; 71046; 74019; 74240; 80048; 80053; 80061; 82248; 82306; 82607; 82728; 82746; 83036; 84425; 84439; 84443; 84481; 85025; 85027; C9113; J1100; J1450; J1885; J2001; J2405; J2543; J2704; J3010; J3480; J3490; J7050; Q9963